=== PATIENT | male | born 1975 | race Caucasian/White ===

== ENCOUNTER 2020-11-16 12:27 | Emergency (ER) | payer MEDICAID, SELFPAY ==
--- NOTE | 2020-11-16 | ECG_ITS ---
Test Reason : SUBSTANCE ABUSE Blood Pressure : / mmHG Vent. Rate : 067 BPM Atrial Rate : 067 BPM P-R Int : 182 ms QRS Dur : 100 ms QT Int : 408 ms P-R-T Axes : -13 057 038 degrees QTc Int : 431 ms Normal sinus rhythm Normal ECG When compared with ECG of 14-AUG-2016 02:23, No significant change was found Referred By: Graeme Hodge Electronically Signed By:ELODIA ROSEN
[2020-11-16 12:55] VITALS: BP 129/81; PULSE 89; RESP 16; TEMP 36.7; O2SAT 95; BMI 28.9
--- NOTE | 2020-11-16 13:59 | ED.PSYCH ---
HPI - Psych General Chief Complaint: Psychiatric Symptoms Stated Complaint: SI Time Seen by Provider: 11/16/20 12:35 Source: patient Mode of arrival: ambulatory Limitations: no limitations History of Present Illness HPI Narrative: Patient comes to emergency room complaining depression, suicidal thoughts, substance abuse. Patient states that he has been trying to stop using drugs, but he continued using, his family stopped talking to him. Patient states that he feels like he hit a wall, has had suicidal thoughts, at this moment is not suicidal but the thought has from his mind. Patient was brought in by the refinery operator light ends recovery Related Data Allergies Allergy/AdvReac Type Severity Reaction Status Date / Time Penicillins [PENICILLINS] Allergy Mild HIVES Unverified 10/30/19 14:50 Review of Systems Review of Systems: Constitutional : No Weight loss, No Fever, No Chills, No Night Sweats, No Fatigue, No Malaise ENT/Mouth : No Hearing loss, No Ear Pain, No Nasal Congestion, No Sinus Pain, No Hoarseness, No sore throat, No Rhinorrhea, No Swallowing Difficulty Eyes: No Eye Pain, No Swelling, No Redness, No Foreign Body, No Discharge, No Vision Changes Cardiovascular : No Chest Pain, No SOB, No Dyspnea on Exertion, No Orthopnea, No Edema, No Palpitations Respiratory : No Cough, No Sputum, No Wheezing, No Smoke Exposure, No Dyspnea Gastrointestinal : No Nausea, No Vomiting, No Diarrhea, No Constipation, No abdominal Pain, No Hematochezia, No Melena Genitourinary : no irregular bleeding, No Dysuria, No Urinary Frequency, No Hematuria, No Urinary Incontinence, No Urgency, No Flank Pain, No Urinary Flow Changes, No Hesitancy Musculoskeletal : No joint pain, No Myalgias, No Joint Swelling Skin : No Skin Lesions, No rash Neuro : No Weakness, No Numbness, No Paresthesias, No Loss of Consciousness, No Dizziness, No Headache Psych : complaining of depression, complaining of intermittent suicidal thoughts, wants to stop using drugs Heme/Lymph: No Bruising, No Bleeding,No Lymphadenopathy Endocrine : No Polyuria, No Polydipsia, No Temperature Intolerance PMF Past Medical History Medical History (Updated 11/16/20 @ 14:04 by Samia Moss MD) Depression Social History Social History Advance Directives: No Advance Directives Information Provided: No Physical Exam Vital Signs: Vital Signs: Last Vital Signs Temp 98.1 F 11/16/20 12:55 Pulse 89 11/16/20 12:55 Resp 16 11/16/20 12:55 BP 129/81 11/16/20 12:55 Pulse Ox 95 11/16/20 12:55 Body Mass Index 28.9 Const: Other: Appearance: Alert. Oriented X3. No acute distress. Eyes: Pupils equal, round and reactive to light. ENT: Pharynx normal. Neck: Normal inspection. Neck supple. No lymph nodes noted. No crepitus CVS: Normal heart rate and rhythm. Pulses normal. Normal S1 and S2 Respiratory: No respiratory distress. Breath sounds normal. No Wheezing. No rales Abdomen: Soft and nontender. No rigidity. No distention. good BS x4 Skin: Skin warm and dry. Normal skin color. Normal skin turgor. Extremities: No lower extremity edema. No lower extremity edema. No Lacerations. No Rash Neuro: Oriented X 3. Cranial nerves 2-12 grossly intact. No motor deficit. No sensory deficit. Moving all extermities. No slurred speech. Psych: Normal speech, calm, cooperative, normal affect Course Course Course Narrative: Patient would [facility]. Patient is considering dual diagnosis. Physician observation started at 14:00. Patient stable. Discharge Plan Discharge Clinical Impression: Substance abuse, Suicide ideation
[2020-11-16 15:28] LABS: Amphetamine Screen Urine Not Detected (Not Detect); Barbiturates, Urine Not Detected (Not Detect); Benzodiazepines Screen Urine Not Detected (Not Detect); Cannabinoid Screen Urine Not Detected (Not Detect); Cocaine Screen Urine POSITIVE (Not Detect); Fentanyl, urine Not Detected (Not Detect); Opiate Screen Urine Not Detected (Not Detect); Phencyclidine Screen Urine Not Detected (Not Detect)
[2020-11-16 15:30] LABS: COVID-19 Test Negative (Negative)
--- NOTE | 2020-11-16 18:00 | MHC.RECOVSUP ---
? Reason for consult o Current location: o Identified substance use concern: cocaine -support ? Intervention:s o Community resources provided o Harm reduction discussion ? Plan: o o Follow up tomorrow o Patient awaiting crisis evaluation o Patient to follow up with [facility] after discharge ? Additional information:Patient states that he wants a dual diagnosis place to go to. Explained to pt. that hopefully he can speak to [facility] when they come to assess him. Was able to notify Care Team
--- NOTE | 2020-11-16 20:18 | MHC.CARE ---
Pt was evaluated by N and disposition was for d/c in the morning. Pt will remain in the ED overnight.
[2020-11-16 20:29] LABS: MANUAL DIFF FLAG NO
[2020-11-16 20:33] LABS: Basophils Percent Auto 0.5 % (0-2); Eosinophils Absolute Auto 0.2 X10*3/uL (0.0-0.4); Eosinophils Percent Auto 3.6 % (0-4); Hematocrit 46.6 % (42-52); Hemoglobin 16.1 g/dl (14.0-18.0); Imm Gran Abs Auto 0.01 X10*3/uL (0.00-0.03); Imm Gran Pct Auto 0.2 % (0.0-0.4); Lymphocytes Absolute Auto 2.8 X10*3/uL (1.2-4.9); Mean Corpuscular HGB Conc 34.5 g/dl (31.0-36.0); Mean Corpuscular Hemoglobin 30.1 pg (27.0-33.0); Mean Corpuscular Volume 87.3 fL (80-98); Mean Platelet Volume 10.1 fL (9.4-12.4); Monocytes Absolute Auto 0.7 X10*3/uL (0.1-1.2); Monocytes Percent Auto 11.3 % (2-11); Neutrophils Absolute Auto 2.6 X10*3/uL (2.0-8.3); Neutrophils Percent Auto 40.4 % (45-73); Platelet Count 183 X10*3/uL (160-400); Red Blood Count 5.34 X10*6/uL (4.60-5.80); Red Cell Distribution Width 12.5 % (11.0-16.0); White Blood Count 6.4 X10*3/uL (4.8-10.8)
[2020-11-16 20:45] LABS: Anion Gap 12 (12-20); Blood Urea Nitrogen 17 mg/dL (9-16); Calcium 9.6 mg/dL (8.4-10.2); Carbon Dioxide 29 mmol/L (22-29); Chloride 101 mmol/L (96-108); Creatinine Clr Calc Pharmacy 93.6; Estimated Glomerular Filt Rate 59; Glucose Random 274 mg/dL (60-115); Potassium 4.3 mmol/L (3.3-5.1); Sodium 138 mmol/L (135-145)
[2020-11-17 00:30] VITALS: BP 115/76; PULSE 74; RESP 17; TEMP 36.5; O2SAT 95
--- NOTE | 2020-11-17 07:44 | PC.NURSE ---
patient appears to remain asleep at present with even unlabored breaths patient appears in no distress
[2020-11-17 08:44] VITALS: BP 115/76; PULSE 74
[2020-11-17] MEDS: Propranolol HCL LA 60 MG CAP.SA.24H PO (08:44)
[2020-11-17] MEDS: PARoxetine HCL 20 MG TABLET 60 MG PO (08:44)
--- NOTE | 2020-11-17 08:55 | MHC.RECOVSUP ---
Recovery Support note: Patient is a 45 year old Eritrean speaking male who presented to [facility] ED with a soccer coach after they were unable to find a detox bed. Patient reported vague SI thoughts upon admission to the emergency department. Patient was evaluated by [facility] Crisis. [facility] recommends patient discharge and follow up with ATS facilities. This movie writer met with patient to discuss this plan. Patient denies SI and agrees that he would benefit most from detox. Patient reports cocaine and alcohol use and that his last drink was the day before admitting to the emergency department. Patient reports he is willing to go anywhere for treatment. This movie writer will assist patient in referring to ATS facilities.
--- NOTE | 2020-11-17 11:05 | MHC.RECOVSUP ---
Recovery Support note: Patient completed intake with [facility] and has been accepted for admission. Patient will be transported to [facility] via Lyft or Taxi once discharged. Plan for patient's girlfriend to drop off his medications at the facility later on today. Patient agreeable to this plan. Discussed case with patient's RN and ED provider.
--- NOTE | 2020-11-17 11:14 | PC.NURSE ---
per detox customer care team coach, pt to be d/c
== END 2020-11-17 11:29 | disposition other institution (70) ==
PROVIDERS: Emergency Medicine; Emergency Provider Emergency Medicine
DX: F33.1 Major depressive disorder, recurrent, moderate (principal); R45.851 Suicidal ideations; F14.10 Cocaine abuse, uncomplicated; F10.10 Alcohol abuse, uncomplicated; Y90.9 Presence of alcohol in blood, level not specified; Z20.822 Contact with and (suspected) exposure to COVID-19; Z71.51 Drug abuse counseling and surveillance of drug abuser; Z79.899 Other long term (current) drug therapy
CPT/HCPCS: 36415; 80048; 80307; 85025; 87635; 93005; 99284; 99285

== ENCOUNTER 2020-12-01 20:19 | Inpatient (IN) | payer OTHER, MEDICAID, SELFPAY ==
[2020-12-01 20:31] VITALS: BP 127/79; PULSE 95; RESP 17; TEMP 36.8; O2SAT 95; BMI 30.8
[2020-12-01 21:06] LABS: Appearance Urine HAZY; Color Urine DK YELLOW; Glucose Urine UA 500 MG/DL (NEG); Leukocyte Esterase Urine NEG (NEG); Nitrite Urine NEG (NEG); PH 5.5 (5.0-8.0); Specific Gravity - Urine >= 1.030 (1.005-1.025); UACC Culture Trigger NO; Urine Blood NEG (NEG); Urine Ketones NEG (NEG); Urine Protein 1+ MG/DL (NEG-TRACE)
[2020-12-01 21:11] LABS: Mucus Urine 4+ /LPF
[2020-12-01 21:12] LABS: Granular Casts Urine 0-2 /LPF; Squamous Epithelial Cell Urine TRACE /LPF
[2020-12-01 21:13] LABS: Bacteria Urine TRACE /LPF; RBC Urine 0-2 /HPF (0); WBC Urine 0 /HPF (0-4)
--- NOTE | 2020-12-01 21:17 | ED_ITS ---
HPI - Psych General Chief Complaint: Psychiatric Symptoms Stated Complaint: SI w/ plan Time Seen by Provider: 12/01/20 21:17 Source: patient Mode of arrival: EMS Limitations: no limitations History of Present Illness HPI Narrative: Patient history of depression/bipolar complaining of increased depression went to the PD department the patient was here on 11/16 and sent to living room, history of cocaine abuse. Patient is not taking his medication for last 1 week had a fight with his girlfriend and is homeless for last 3 days does not have any wish to live anymore his family disowned him Related Data Home Medications Medication Instructions Recorded Confirmed buspirone 5 mg tablet 1 tab PO BID 12/01/20 12/01/20 celecoxib 100 mg capsule 1 cap PO BID 12/01/20 12/01/20 dextroamphetamine-amphetamine ER 1 cap PO BEDTIME 12/01/20 12/01/20 25 mg 24hr capsule,extend release (Adderall XR) paroxetine HCl 30 mg tablet 60 mg PO DAILY 12/01/20 12/01/20 propranolol 60 mg capsule,24 1 cap PO DAILY 12/01/20 12/01/20 hr,extended release Allergies Allergy/AdvReac Type Severity Reaction Status Date / Time Penicillins [PENICILLINS] Allergy Mild HIVES Unverified 10/30/19 14:50 Review of Systems Review of Systems: Constitutional : No Fever, No Chills ENT/Mouth : No Ear Pain, No Nasal Congestion, No sore throat Eyes: No Eye Pain, No Swelling, No Redness Cardiovascular : No Chest Pain, No SOB Respiratory : No Cough, No Sputum, No Dyspnea Gastrointestinal : No Nausea, No Vomiting, No Diarrhea, No Hematochezia, No Melena Genitourinary : No Dysuria, No Urinary Frequency, No Hematuria Musculoskeletal : No Myalgias Skin : No Skin Lesions, No rash Neuro : No Weakness, No Numbness, No Paresthesias, No Dizziness, No Headache Psych : positive Anxiety, positive Depression, positive SI Heme/Lymph: No Lymphadenopathy Endocrine : No Polyuria, No Polydipsia PMFSH Past Medical History Medical History Depression Social History Social History Advance Directives: No Advance Directives Information Provided: Yes Healthcare Proxy: No Guardian: No Physical Exam Vital Signs: Vital Signs: Last Vital Signs Temp 97.9 F 12/02/20 06:46 Pulse 85 12/02/20 06:46 Resp 16 12/02/20 06:46 BP 118/78 12/02/20 06:46 Pulse Ox 96 12/02/20 06:46 Body Mass Index 30.8 Appearance: Alert. Oriented X3. No acute distress. Eyes: PERRLA, No Nystagmus ENT: Pharynx normal. Oral Mucosa moist Neck: Normal inspection. Neck supple. CVS: Normal heart rate and rhythm. Pulses normal. Respiratory: No respiratory distress. Equal air entry bilateral, no wheezing/rales/rhonchi Abdomen: Soft and nontender. Bowel sounds are present, no mass palpable, no CVA tenderness Skin: Skin warm and dry. Normal skin color. Normal skin turgor. Extremities: No lower extremity edema. No calf tenderness Psych: Mood depressed currently no suicidal ideation or homicidal feelings, no hallucination or delusion poor insight Neuro: Oriented X 3. No motor deficit. No sensory deficit.No cerebellar signs , cranial nerves II-XII intact MDM - Psych MDM Narrative Medical decision making narrative: History of cocaine abuse significant depression suicidal ideation will be seen by crisis team for proper disposition Medical Records Attestation: I reviewed the patient's medical records. Lab Data Attestation: I reviewed the patient's lab results. Labs: Lab Results 12/01/20 12/01/20 12/01/20 Range/Units 20:48 20:59 20:59 Urine Color DK YELLOW Urine Appearance HAZY Urine pH 5.5 (5.0-8.0) Ur Specific [place] >= 1.030 H (1.005-1.025) Urine Protein 1+ H (NEG-TRACE) MG/DL Urine Glucose (UA) 500 H (NEG) MG/DL Urine Ketones NEG (NEG) MG/DL Urine Blood NEG (NEG) Urine Nitrite NEG (NEG) Ur Leukocyte Esterase NEG (NEG) Urine RBC 0-2 (0) /HPF Urine WBC 0 (0-4) /HPF Ur Squamous Epith Cells TRACE /LPF Urine Bacteria TRACE /LPF Granular Casts 0-2 /LPF Urine Mucus 4+ /LPF Urine Opiates Screen Not Detected (Not Detect) Urine Fentanyl Screen Not Detected (Not Detect) Ur Barbiturates Screen Not Detected (Not Detect) Ur Phencyclidine Scrn Not Detected (Not Detect) Ur Amphetamines Screen Not Detected (Not Detect) U Benzodiazepines Scrn Not Detected (Not Detect) Urine Cocaine Screen POSITIVE H (Not Detect) U Marijuana (THC) Screen Not Detected (Not Detect) COVID-19 (INGRID) Negative (Negative) COVID-19 Clin Com See Note Discharge Plan Discharge Clinical Impression: Suicidal ideation Depression Qualifiers: Depression Type: major depressive disorder Major depression recurrence: recurrent Active/Remission status: currently active Major depression episode severity: severe Psychotic features: without psychotic features Qualified Code(s): F33.2 - Major depressive disorder, recurrent severe without psychotic features Prescriptions: No Action buspirone 5 mg tablet 1 tab PO BID RF: 0 propranolol 60 mg capsule,extended release 24 hr 1 cap PO DAILY RF: 0 paroxetine HCl 30 mg tablet 60 mg PO DAILY RF: 0 celecoxib 100 mg capsule 1 cap PO BID RF: 0 dextroamphetamine-amphetamine [Adderall XR] 25 mg capsule,extended release 24hr 1 cap PO BEDTIME RF: 0
[2020-12-01 21:20] LABS: COVID-19 Test Negative (Negative)
[2020-12-01 21:23] LABS: Amphetamine Screen Urine Not Detected (Not Detect); Barbiturates, Urine Not Detected (Not Detect); Benzodiazepines Screen Urine Not Detected (Not Detect); Cannabinoid Screen Urine Not Detected (Not Detect); Cocaine Screen Urine POSITIVE (Not Detect); Fentanyl, urine Not Detected (Not Detect); Opiate Screen Urine Not Detected (Not Detect); Phencyclidine Screen Urine Not Detected (Not Detect)
[2020-12-01] MEDS: busPIRone HCl 5 MG TABLET PO (23:00)
--- NOTE | 2020-12-02 | ECG_ITS ---
Test Reason : MED CLEARANCE Blood Pressure : / mmHG Vent. Rate : 066 BPM Atrial Rate : 066 BPM P-R Int : 198 ms QRS Dur : 092 ms QT Int : 416 ms P-R-T Axes : 014 057 044 degrees QTc Int : 436 ms Normal sinus rhythm RSR' or QR pattern in V1 suggests right ventricular conduction delay Borderline ECG No significant changes seen Referred By: Hawa Cruz Electronically Signed By:ROSALVA FLORES MD
--- NOTE | 2020-12-02 06:23 | PC.NURSE ---
Patient slept through the night, no distress observed/reported, medication compliant, behavior appropriate, mood depressed, disposition is section 12 inpatient bed search per care team, will continue to monitor.
[2020-12-02 06:46] VITALS: BP 118/78; PULSE 85; RESP 16; TEMP 36.6; O2SAT 96
[2020-12-02 10:45] VITALS: BP 110/78; PULSE 81; RESP 16; TEMP 36.6; O2SAT 98
--- NOTE | 2020-12-02 10:47 | PC.NURSE ---
PT asked if he can bring in adderal from home, Pt states that he does not take it regularly and probably shouldn't take it anyway .
[2020-12-02 10:50] VITALS: BP 110/78; PULSE 81
[2020-12-02] MEDS: Propranolol HCL LA 60 MG CAP.SA.24H PO (10:50)
[2020-12-02] MEDS: PARoxetine HCL 20 MG TABLET 60 MG PO (10:50)
[2020-12-02] MEDS: busPIRone HCl 5 MG TABLET PO (10:50)
[2020-12-02] MEDS: Celecoxib 100 MG CAPSULE PO ×2 (10:50→22:39)
[2020-12-02 10:58] LABS: MANUAL DIFF FLAG NO
[2020-12-02 11:02] LABS: Basophils Percent Auto 0.3 % (0-2); Eosinophils Absolute Auto 0.2 X10*3/uL (0.0-0.4); Eosinophils Percent Auto 3.5 % (0-4); Hematocrit 44.8 % (42-52); Hemoglobin 15.7 g/dl (14.0-18.0); Imm Gran Abs Auto 0.02 X10*3/uL (0.00-0.03); Imm Gran Pct Auto 0.3 % (0.0-0.4); Lymphocytes Absolute Auto 1.8 X10*3/uL (1.2-4.9); Lymphocytes Percent Auto 26.6 % (20-40); Mean Corpuscular Hemoglobin 30.3 pg (27.0-33.0); Mean Corpuscular Volume 86.5 fL (80-98); Mean Platelet Volume 10.3 fL (9.4-12.4); Monocytes Absolute Auto 0.6 X10*3/uL (0.1-1.2); Monocytes Percent Auto 8.5 % (2-11); Neutrophils Absolute Auto 4.1 X10*3/uL (2.0-8.3); Neutrophils Percent Auto 60.8 % (45-73); Platelet Count 161 X10*3/uL (160-400); Red Blood Count 5.18 X10*6/uL (4.60-5.80); Red Cell Distribution Width 12.8 % (11.0-16.0); White Blood Count 6.8 X10*3/uL (4.8-10.8)
[2020-12-02 11:18] LABS: Alanine Aminotransferase 23 U/L (0-40); Albumin Level 4.1 g/dL (3.5-5.0); Alkaline Phosphatase 79 U/L (39-117); Anion Gap 11 (12-20); Aspartate Amino Transferase 23 U/L (5-37); Blood Urea Nitrogen 20 mg/dL (9-16); Calcium 9.3 mg/dL (8.4-10.2); Carbon Dioxide 28 mmol/L (22-29); Chloride 100 mmol/L (96-108); Creatinine Clr Calc Pharmacy 127.6; Estimated Glomerular Filt Rate > 60; Glucose Random 292 mg/dL (60-115); Sodium 135 mmol/L (135-145); Total Protein 6.8 g/dL (6.5-8.0)
[2020-12-02 18:00] VITALS: BP 104/73; PULSE 83; RESP 18; TEMP 36.7; O2SAT 94
--- NOTE | 2020-12-02 18:34 | PC.ADMIT ---
Pt is a 45 year old male admitted to the unit from [facility] ed where he had been assessed by MEGHANAN. Pt reportedly pt came looking for help after feeling hopeless and helpless because of his chronic addiction to crack cocaine. Pt reports a history of feeling depressed in relation to his constant use of this. He resides with his girlfriend of 8 years and has become estranged from his family for several years due to the addiction and a history of incarcerations. Pt had endorsed SI with plan to walk infront of traffic, according to the crisis evaluation pt was feeling destitute and stated he had no home to go to and had broken up with his girlfriend. However, during this assessment pt stated he will be able to return home to her and is feeling more hopeful about the future and is looking for help to get back on meds and perhaps seek DMH services and therepy as well as returning to addiction support groups. Pt has a history of trauma relating to his parent's bad marriage and his having found friends who had after overdosing in crack houses in the past. Pt does not currently work because of a shoulder injury caused by work related tissue trauma. Provider aware, admission complete, med req completed/reviewed by ED and provider., orders complete.
[2020-12-02] MEDS: Melatonin 3 MG TABLET 6 MG PO (22:42)
--- NOTE | 2020-12-02 23:15 | HO.PSYADMNOT ---
HPI Date of Service: 12/02/20 Chief Complaint: bipolar disorder stimulant use disorder cocaine Sources of Information: patient interviewed, chart reviewed and crisis/core team assessment reviewed HPI Subjective Notes: [place]er Warning and Conditional Voluntary Healthcare Proxy: No Guardianship: No Medical Problems Affecting Mental Status: No Narrative: Mane is a 45 y.o. Male with a hx of MDD recurrent episode and crack cocaine use disorder. He presented to [facility] on 12/01/20 after self presenting to today and requesting help due to increased depression, anxiety, and SI with plan to jump in front of a moving car. Has been non-adherent with medication for 1 week. Precipitating factors include he had a fight with his girlfriend and is homeless for last 3 days, denies having family/ friend support. Recent daily crack cocaine abuse, using $40 worth. He presented to [facility] on 11/16 due to similar presentation and was sent to the Living Room with plan for detox admission, however he did not follow through as he was no longer detoxing. I evaluated the pt this evening and upon inquiry he reports ?I dont know how to deal with my mental health.? Says he has always struggled with depression and anxiety but has recently been diagnosed with panic disorder and PTSD in the past 6 mo. For precipitating factors, he says ?life is overwhelming, a lot of it is my addiction too.? Says he ?would like to stop, it?s literally killing me.? Says his sleep is poor, has difficulty falling asleep, has been ?lying in here for the last hour and half,? attributes this to anxiety. ays his last panic attack was ?a couple days ago.? Has been feeling ?nervous? due to being in a new environment and prefers to ?keep to myself.? No nightmares. Daytime energy is ?really low.? No hx of dorothea/ hypomania endorsed. Denies agitation or anger issues. Denies psychosis. Says he does not want to take any meds that are sedating or cause grogginess because he doen?t want to ?feel like i?m getting high.? Asked to for his adderall to be discontinued. Currently denies SI and says he feels safe. Denies urges to use cocaine.? Past Psychiatric History: -Has OP psych services at [facility] in [place] -hx of several [facility] admissions, one PHP admission. Past meds: Gabapentin (grogginess), trazodone (wont take, does not like potential for morning hangover effect). Adderall (asked for this to be discontinued). Medical Evaluation Reviewed: Yes [facility] Medical History Depression Narrative: -Hx of L knee issues Social History: -Pt reports he was residing with his girlfriend up until three days ago, but they had a fight and he is currently homeless. Has history of being homeless since 2000, in and out of shelters. -Raised in [place] by his parents. His parents were when he was 11 yrs old. Has no contact with his father or brother. -He dropped out of school in the 9th grade, but was able to obtain his GED while incarcerated. Substance History: -Crack cocaine: began age 25, daily use, $40 worth -He has a history of multiple detox and EATS admissions. He has a history of relapsing shorty after a discharge from a substance abuse treatment program. Trauma History: -R/t hx of homelessness and [facility] Diagnostics Vital Signs (24Hr): Vital Signs - 24 hr 12/02/20 06:46 12/02/20 10:45 12/02/20 10:50 Temperature 97.9 F 97.8 F Pulse Rate 85 81 81 Respiratory Rate 16 16 Blood Pressure 118/78 110/78 110/78 Pulse Oximetry 96 98 Body Mass Index 30.8 Labs Results: 12/02/20 10:50 12/02/20 10:50 Labs: Laboratory Results - last 48 hr 12/01/20 12/01/20 12/01/20 20:48 20:59 20:59 WBC RBC Hgb Hct MCV MCH MCHC RDW Plt Count MPV Immature Gran % (Auto) Neut % (Auto) Lymph % (Auto) [place] % (Auto) Eos % (Auto) Baso % (Auto) Lymph # (Auto) [place] # (Auto) Eos # (Auto) Baso # (Auto) Abs Immat Gran (auto) Absolute Neuts (auto) Absolute Nucleated RBC Nucleated RBC % (auto) Sodium Potassium Chloride Carbon Dioxide Anion Gap BUN Creatinine Estim Creat Clear Calc Estimated GFR Random Glucose Calcium Total Bilirubin AST ALT Alkaline Phosphatase Total Protein Albumin Urine Color DK YELLOW Urine Appearance HAZY Urine pH 5.5 Ur Specific [place] >= 1.030 H Urine Protein 1+ H Urine Glucose (UA) 500 H Urine Ketones NEG Urine Blood NEG Urine Nitrite NEG Ur Leukocyte Esterase NEG Urine RBC 0-2 Urine WBC 0 Ur Squamous Epith Cells TRACE Urine Bacteria TRACE Granular Casts 0-2 Urine Mucus 4+ Urine Opiates Screen Not Detected Urine Fentanyl Screen Not Detected Ur Barbiturates Screen Not Detected Ur Phencyclidine Scrn Not Detected Ur Amphetamines Screen Not Detected U Benzodiazepines Scrn Not Detected Urine Cocaine Screen POSITIVE H U Marijuana (THC) Screen Not Detected COVID-19 (INGRID) Negative COVID-19 Clin Com See Note 12/02/20 12/02/20 10:50 10:50 WBC 6.8 RBC 5.18 Hgb 15.7 Hct 44.8 MCV 86.5 MCH 30.3 MCHC 35.0 RDW 12.8 Plt Count 161 MPV 10.3 Immature Gran % (Auto) 0.3 Neut % (Auto) 60.8 Lymph % (Auto) 26.6 [place] % (Auto) 8.5 Eos % (Auto) 3.5 Baso % (Auto) 0.3 Lymph # (Auto) 1.8 [place] # (Auto) 0.6 Eos # (Auto) 0.2 Baso # (Auto) 0.0 Abs Immat Gran (auto) 0.02 Absolute Neuts (auto) 4.1 Absolute Nucleated RBC 0.000 Nucleated RBC % (auto) 0.0 Sodium 135 Potassium 4.0 Chloride 100 Carbon Dioxide 28 Anion Gap 11 L BUN 20 H Creatinine 0.97 Estim Creat Clear Calc 127.6 Estimated GFR > 60 Random Glucose 292 H Calcium 9.3 Total Bilirubin 1.0 AST 23 ALT 23 Alkaline Phosphatase 79 Total Protein 6.8 Albumin 4.1 Urine Color Urine Appearance Urine pH Ur Specific [place] Urine Protein Urine Glucose (UA) Urine Ketones Urine Blood Urine Nitrite Ur Leukocyte Esterase Urine RBC Urine WBC Ur Squamous Epith Cells Urine Bacteria Granular Casts Urine Mucus Urine Opiates Screen Urine Fentanyl Screen Ur Barbiturates Screen Ur Phencyclidine Scrn Ur Amphetamines Screen U Benzodiazepines Scrn Urine Cocaine Screen U Marijuana (THC) Screen COVID-19 (INGRID) COVID-19 Clin Com Meds/Allergies Meds Home Medications Acetaminophen (Acetaminophen 325 Mg Tablet) 650 mg PO Q6H PRN PRN Reason: Headache/Pain Mild Scale (1-3) Al Hydroxide/Mg Hydroxide (Magnesium Hydrox/Alum Hydrox 30 Ml Oral.Susp) 30 ml PO Q6H PRN PRN Reason: Heartburn/Nausea Buspirone HCl (Buspirone Hcl 5 Mg Tablet) 15 mg PO BID [facility] Celecoxib (Celecoxib 100 Mg Capsule) 100 mg PO BID [facility] Last Admin: 12/02/20 22:39 Dose: 100 mg Documented by: Hydroxyzine HCl (Hydroxyzine Hcl 25 Mg Tablet) 25 mg PO BEDTIME PRN PRN Reason: Anxiety Magnesium Hydroxide (Milk Of Magnesia 30 Ml Oral.Susp) 30 ml PO DAILY PRN PRN Reason: Constipation Melatonin (Melatonin 3 Mg Tablet) 6 mg PO BEDTIME PRN PRN Reason: insomnia Last Admin: 12/02/20 22:42 Dose: 6 mg Documented by: Paroxetine HCl (Paroxetine Hcl 20 Mg Tablet) 60 mg PO DAILY [facility] Last Admin: 12/02/20 10:50 Dose: 60 mg Documented by: Propranolol HCl (Propranolol Hcl La 60 Mg Cap.Sa.24h) 60 mg PO DAILY [facility]; Protocol Last Admin: 12/02/20 10:50 Dose: 60 mg Documented by: Trazodone HCl (Trazodone Hcl 50 Mg Tablet) 50 mg PO BEDTIME PRN PRN Reason: Insomnia Allergies Allergies Allergy/AdvReac Type Severity Reaction Status Date / Time Penicillins [PENICILLINS] Allergy Mild HIVES Unverified 10/30/19 14:50 Mental Status Exam Mental Status Exam Narrative: A&O. In hospital attire, good hygiene, normal body habitus, tall, lying down in bed. Poor eye contact, attentive. No Tics or Tremors. No abnormal involuntary movements. Calm, somewhat withdran, engaged. Non-pressured speech, spontaneous with regular rate and rhythm, normal volume and prosody. No prolonged speech latency or dysarthria. Mood is ?anxious,? affect is blunted. Denies SI/SIB/HI upon inquiry. Denies A/VH or delusional thought content. Thoughts are coherent, organized. No known cognitive or memory impairment. Insight/ Judgment fair and adequate. Assessment & Plan Assessment & Plan (1) MDD (major depressive disorder), recurrent episode, moderate: Status: Acute Code(s): F33.1 - Major depressive disorder, recurrent, moderate (2) Cocaine use disorder: Status: Acute Code(s): F14.10 - Cocaine abuse, uncomplicated (3) MARY (generalized anxiety disorder): Status: Acute Code(s): F41.1 - Generalized anxiety disorder Assessment and Plan: Mane is a 45 y.o. Male with a hx of MDD recurrent episode, MARY, and crack cocaine use disorder. He is presenting with sx of depression including hopeleness, anhedonia, irritability, low energy, and SI. Reports struggling with daily anxiety and recent panic attacks. Recent med changes include addition of buspar at 5 mg BID. Does not want to trial new medication but he is open to increasing buspar to therapeutic dose. Will increase to 15 mg BID, as buspar has significantly increased efficacy for anxiety and as adjunct tx for depression at higher doses and 15 mg BID is a starting dose. Will add melatonin 6 mg QHS PRN for difficult falling asleep, as pt does not want sedative hypnotic medication, says he is sensitive to any meds that cause sedation. Buspar is less likely to cause sedation at doses below 20 mg. Reviewed risks and benefits. No hx of manic or hypomanic episodes endorsed. Plan: Consider consult with recovery team Monitor response to medications. Monitor for safety in the milieu. Discharge on stabilization. Patient seen. Chart reviewed. Discussed with team. Obtain collateral contact info?as needed Reason for continued inpatient stay Substantial Risk for: harm to self, inability to function and med/psych decompensation
[2020-12-03 06:00] VITALS: BP 122/73; PULSE 70; RESP 18; TEMP 36.6; O2SAT 99
[2020-12-03 08:34] VITALS: BP 108/73; PULSE 65
[2020-12-03] MEDS: PARoxetine HCL 20 MG TABLET 60 MG PO (08:34)
[2020-12-03] MEDS: Celecoxib 100 MG CAPSULE PO (08:34)
[2020-12-03] MEDS: busPIRone HCl 5 MG TABLET 15 MG PO (08:34)
[2020-12-03] MEDS: Propranolol HCL LA 60 MG CAP.SA.24H PO (08:34)
[2020-12-03 09:10] LABS: Estimated Average Glucose 272 mg/dL; Hemoglobin A1c % 11.1 %
[2020-12-03 09:30] LABS: Cholesterol 233 mg/dL; HDL Cholesterol 29 mg/dL; LDL Cholesterol Calculated 147 mg/dl; Triglycerides 288 mg/dL
[2020-12-03 09:51] LABS: Free T4 (Free Thyroxine) 0.85 ng/dL (0.71-1.85); Thyroid Stimulating Hormone 0.49 uIU/mL (0.32-4.0)
[2020-12-03 10:05] LABS: Folate 13.1 ng/mL (> or = 4.0); Vitamin B12 333 pg/mL (200-900)
--- NOTE | 2020-12-03 16:47 | P.DS_ITS ---
DS: Providers Provider Date of Service: 12/03/20 Date of admission: 12/02/20 13:58 Date of discharge: 12/03/20 Primary care physician: Unknown Physician Admitting clinician: Savita Roy Attending physician on admission: Ayden Oconnell Attending physician on discharge: Ayden Oconnell Discharging clinician: Miriam Estrada DS: Diagnosis Discharge Diagnosis (1) MDD (major depressive disorder), recurrent episode, moderate: Status: Acute (2) Cocaine use disorder: Status: Acute (3) MARY (generalized anxiety disorder): Status: Acute DS: Medications Discharge Medications Home Medications: Home Medications Medication Instructions Recorded Confirmed buspirone 5 mg tablet 1 tab PO BID 12/01/20 12/01/20 celecoxib 100 mg capsule 1 cap PO BID 12/01/20 12/01/20 dextroamphetamine-amphetamine ER 1 cap PO BEDTIME 12/01/20 12/01/20 25 mg 24hr capsule,extend release (Adderall XR) paroxetine HCl 30 mg tablet 60 mg PO DAILY 12/01/20 12/01/20 propranolol 60 mg capsule,24 1 cap PO DAILY 12/01/20 12/01/20 hr,extended release Mental Status Exam Mental Status Exam Patient Appearance: Appropriate Patient Orientation: Person, Place, Time and Situation Level of Consciousness: Awake and Alert Patient Behavior: Appropriate, Talkative and Good Eye Contact Mood Description: Appropriate Affect Description: Appropriate Patient Cognition Impaired: No Ability to Follow Directions: Good Speech Pattern: Spontaneous Speech Memory Description: Intact Hallucinations: None Delusions: Not Present Thought Process: Intact Thought Content: positive for Intact, positive for Suicidal Ideation (denies) and positive for Homicidal Ideation (denies) Judgement: Good Data Data Completed and Pending Completed studies during hospitalization [Text1]: 12/01/20 12/01/20 12/01/20 20:48 20:59 20:59 WBC RBC Hgb Hct MCV MCH MCHC RDW Plt Count MPV Immature Gran % (Auto) Neut % (Auto) Lymph % (Auto) [place] % (Auto) Eos % (Auto) Baso % (Auto) Lymph # (Auto) [place] # (Auto) Eos # (Auto) Baso # (Auto) Abs Immat Gran (auto) Absolute Neuts (auto) Absolute Nucleated RBC Nucleated RBC % (auto) Sodium Potassium Chloride Carbon Dioxide Anion Gap BUN Creatinine Estim Creat Clear Calc Estimated GFR Random Glucose Estimat Average Glucose Hemoglobin A1c % Calcium Total Bilirubin AST ALT Alkaline Phosphatase Total Protein Albumin Triglycerides Cholesterol LDL Cholesterol, Calc HDL Cholesterol Vitamin B12 Folate TSH Free T4 Urine Color DK YELLOW Urine Appearance HAZY Urine pH 5.5 Ur Specific [place] >= 1.030 H Urine Protein 1+ H Urine Glucose (UA) 500 H Urine Ketones NEG Urine Blood NEG Urine Nitrite NEG Ur Leukocyte Esterase NEG Urine RBC 0-2 Urine WBC 0 Ur Squamous Epith Cells TRACE Urine Bacteria TRACE Granular Casts 0-2 Urine Mucus 4+ Urine Opiates Screen Not Detected Urine Fentanyl Screen Not Detected Ur Barbiturates Screen Not Detected Ur Phencyclidine Scrn Not Detected Ur Amphetamines Screen Not Detected U Benzodiazepines Scrn Not Detected Urine Cocaine Screen POSITIVE H U Marijuana (THC) Screen Not Detected COVID-19 ([facility]) Negative COVID-19 Clin Com See Note 12/02/20 12/02/20 12/03/20 10:50 10:50 08:12 WBC 6.8 RBC 5.18 Hgb 15.7 Hct 44.8 MCV 86.5 MCH 30.3 MCHC 35.0 RDW 12.8 Plt Count 161 MPV 10.3 Immature Gran % (Auto) 0.3 Neut % (Auto) 60.8 Lymph % (Auto) 26.6 [place] % (Auto) 8.5 Eos % (Auto) 3.5 Baso % (Auto) 0.3 Lymph # (Auto) 1.8 [place] # (Auto) 0.6 Eos # (Auto) 0.2 Baso # (Auto) 0.0 Abs Immat Gran (auto) 0.02 Absolute Neuts (auto) 4.1 Absolute Nucleated RBC 0.000 Nucleated RBC % (auto) 0.0 Sodium 135 Potassium 4.0 Chloride 100 Carbon Dioxide 28 Anion Gap 11 L BUN 20 H Creatinine 0.97 Estim Creat Clear Calc 127.6 Estimated GFR > 60 Random Glucose 292 H Estimat Average Glucose 272 Hemoglobin A1c % 11.1 Calcium 9.3 Total Bilirubin 1.0 AST 23 ALT 23 Alkaline Phosphatase 79 Total Protein 6.8 Albumin 4.1 Triglycerides Cholesterol LDL Cholesterol, Calc HDL Cholesterol Vitamin B12 Folate TSH Free T4 Urine Color Urine Appearance Urine pH Ur Specific [place] Urine Protein Urine Glucose (UA) Urine Ketones Urine Blood Urine Nitrite Ur Leukocyte Esterase Urine RBC Urine WBC Ur Squamous Epith Cells Urine Bacteria Granular Casts Urine Mucus Urine Opiates Screen Urine Fentanyl Screen Ur Barbiturates Screen Ur Phencyclidine Scrn Ur Amphetamines Screen U Benzodiazepines Scrn Urine Cocaine Screen U Marijuana (THC) Screen COVID-19 ([facility]) COVID-19 [facility] Com 12/03/20 12/03/20 08:12 08:12 WBC RBC Hgb Hct MCV MCH MCHC RDW Plt Count MPV Immature Gran % (Auto) Neut % (Auto) Lymph % (Auto) [place] % (Auto) Eos % (Auto) Baso % (Auto) Lymph # (Auto) [place] # (Auto) Eos # (Auto) Baso # (Auto) Abs Immat Gran (auto) Absolute Neuts (auto) Absolute Nucleated RBC Nucleated RBC % (auto) Sodium Potassium Chloride Carbon Dioxide Anion Gap BUN Creatinine Estim Creat Clear Calc Estimated GFR Random Glucose Estimat Average Glucose Hemoglobin A1c % Calcium Total Bilirubin AST ALT Alkaline Phosphatase Total Protein Albumin Triglycerides 288 Cholesterol 233 LDL Cholesterol, Calc 147 HDL Cholesterol 29 Vitamin B12 333 Folate 13.1 TSH 0.49 Free T4 0.85 Urine Color Urine Appearance Urine pH Ur Specific [place] Urine Protein Urine Glucose (UA) Urine Ketones Urine Blood Urine Nitrite Ur Leukocyte Esterase Urine RBC Urine WBC Ur Squamous Epith Cells Urine Bacteria Granular Casts Urine Mucus Urine Opiates Screen Urine Fentanyl Screen Ur Barbiturates Screen Ur Phencyclidine Scrn Ur Amphetamines Screen U Benzodiazepines Scrn Urine Cocaine Screen U Marijuana (THC) Screen COVID-19 ([facility]) COVID-19 Clin Com DS: Summary Hospital Course Hospital Course: Admission to adult psychiatry to address symptoms of anxiety, depression, possible bipolar disorder and cocaine use disorder. Care plan, medication regime and out patient plan of care prior to admission were reviewed. Education was provided regarding management of symptoms, medications and side effects. Nursing and social service worker worked extensively with pt on collateral contacts, plan of care, education regarding management of symptoms, medications and discharge planning. Pt, however, declined to remain to work on issues, citing admission was in response to a disagreement with his partner. He refused care and requested to return to his out patient team. Time spent discussing smoking cessation with patient: 3 to 10 minutes Status at Discharge Cognitive/behavioral status at discharge: non-psychotic, non-suicidal Functional status at discharge: independent ambulation Overall status at discharge: patient is back to baseline Time Spent with Patient Time attestation: Total time spent providing and/or coordinating discharge services:25 Time spent: Less than 30 minutes Discharge Plan Discharge Patient Disposition: Home, Self-Care Discharge Diagnosis: Stimulant Use [id number] year history per pt report MARY Recurrent Major Depression Referrals: [facility] Antoine [Other] - 12/13/20 11:30 am Discharge Medications: Continued buspirone 5 mg tablet 1 tab PO BID RF: 0 propranolol 60 mg capsule,extended release 24 hr 1 cap PO DAILY RF: 0 paroxetine HCl 30 mg tablet 60 mg PO DAILY RF: 0 celecoxib 100 mg capsule 1 cap PO BID RF: 0 dextroamphetamine-amphetamine [Adderall XR] 25 mg capsule,extended release 24hr 1 cap PO BEDTIME RF: 0 Discharge Orders: Discharge Order (Routine); Ordered 12/03/20 Ordered By: Miriam Estrada Diet: advance to usual diet Activity on Discharge: As tolerated Stand Alone Forms: Patient Portal Discharge page, Community Support Care Plan Goals: Mood Stabilization Sobriety Health Concerns: Cocaine Use Disorder MARY Recurrent Major Depression Plan of Treatment: Attend scheduled appointments Take medications as directed Consider further substance abuse treatment Assessment: non-psychotic, non-suicidal. Pt will return home with partner, who supports discharge and will provide transportation and support after discharge Discharge Date/Time: 12/03/20 16:50
--- NOTE | 2020-12-03 16:47 | HO.PSYADMNOT ---
HPI Date of Service: 12/03/20 Chief Complaint: bipolar disorder stimulant use disorder cocaine Sources of Information: patient interviewed, chart reviewed and crisis/core team assessment reviewed HPI Subjective Notes: [place] Warning, Conditional Voluntary and 3 Day Healthcare Proxy: No Guardianship: No Medical Problems Affecting Mental Status: No Past Psychiatric History: -Has OP psych services at [facility] in [place] -hx of several [facility] admissions, one PHP admission. Past meds: Gabapentin (grogginess), trazodone (wont take, does not like potential for morning hangover effect). Adderall (asked for this to be discontinued). [facility] Medical History Depression Social History: -Pt reports he was residing with his girlfriend up until three days ago, but they had a fight and he is currently homeless. Has history of being homeless since 2000, in and out of shelters. -Raised in [place] by his parents. His parents were when he was 11 yrs old. Has no contact with his father or brother. -He dropped out of school in the 9th grade, but was able to obtain his GED while incarcerated. Trauma History: -R/t hx of homelessness and [facility] Vital Signs (24Hr): Vital Signs - 24 hr 12/02/20 18:00 12/03/20 06:00 12/03/20 08:34 Temperature 98.0 F 97.9 F Pulse Rate 83 70 65 Respiratory Rate 18 18 Blood Pressure 104/73 122/73 108/73 Pulse Oximetry 94 99 Body Mass Index 30.8 Labs Results: 12/02/20 10:50 12/02/20 10:50 Labs: Laboratory Results - last 48 hr 12/01/20 12/01/20 12/01/20 20:48 20:59 20:59 WBC RBC Hgb Hct MCV MCH MCHC RDW Plt Count MPV Immature Gran % (Auto) Neut % (Auto) Lymph % (Auto) [place] % (Auto) Eos % (Auto) Baso % (Auto) Lymph # (Auto) [place] # (Auto) Eos # (Auto) Baso # (Auto) Abs Immat Gran (auto) Absolute Neuts (auto) Absolute Nucleated RBC Nucleated RBC % (auto) Sodium Potassium Chloride Carbon Dioxide Anion Gap BUN Creatinine Estim Creat Clear Calc Estimated GFR Random Glucose Estimat Average Glucose Hemoglobin A1c % Calcium Total Bilirubin AST ALT Alkaline Phosphatase Total Protein Albumin Triglycerides Cholesterol LDL Cholesterol, Calc HDL Cholesterol Vitamin B12 Folate TSH Free T4 Urine Color DK YELLOW Urine Appearance HAZY Urine pH 5.5 Ur Specific [place] >= 1.030 H Urine Protein 1+ H Urine Glucose (UA) 500 H Urine Ketones NEG Urine Blood NEG Urine Nitrite NEG Ur Leukocyte Esterase NEG Urine RBC 0-2 Urine WBC 0 Ur Squamous Epith Cells TRACE Urine Bacteria TRACE Granular Casts 0-2 Urine Mucus 4+ Urine Opiates Screen Not Detected Urine Fentanyl Screen Not Detected Ur Barbiturates Screen Not Detected Ur Phencyclidine Scrn Not Detected Ur Amphetamines Screen Not Detected U Benzodiazepines Scrn Not Detected Urine Cocaine Screen POSITIVE H U Marijuana (THC) Screen Not Detected COVID-19 ([facility]) Negative COVID-19 Clin Com See Note 12/02/20 12/02/20 12/03/20 10:50 10:50 08:12 WBC 6.8 RBC 5.18 Hgb 15.7 Hct 44.8 MCV 86.5 MCH 30.3 MCHC 35.0 RDW 12.8 Plt Count 161 MPV 10.3 Immature Gran % (Auto) 0.3 Neut % (Auto) 60.8 Lymph % (Auto) 26.6 [place] % (Auto) 8.5 Eos % (Auto) 3.5 Baso % (Auto) 0.3 Lymph # (Auto) 1.8 [place] # (Auto) 0.6 Eos # (Auto) 0.2 Baso # (Auto) 0.0 Abs Immat Gran (auto) 0.02 Absolute Neuts (auto) 4.1 Absolute Nucleated RBC 0.000 Nucleated RBC % (auto) 0.0 Sodium 135 Potassium 4.0 Chloride 100 Carbon Dioxide 28 Anion Gap 11 L BUN 20 H Creatinine 0.97 Estim Creat Clear Calc 127.6 Estimated GFR > 60 Random Glucose 292 H Estimat Average Glucose 272 Hemoglobin A1c % 11.1 Calcium 9.3 Total Bilirubin 1.0 AST 23 ALT 23 Alkaline Phosphatase 79 Total Protein 6.8 Albumin 4.1 Triglycerides Cholesterol LDL Cholesterol, Calc HDL Cholesterol Vitamin B12 Folate TSH Free T4 Urine Color Urine Appearance Urine pH Ur Specific [place] Urine Protein Urine Glucose (UA) Urine Ketones Urine Blood Urine Nitrite Ur Leukocyte Esterase Urine RBC Urine WBC Ur Squamous Epith Cells Urine Bacteria Granular Casts Urine Mucus Urine Opiates Screen Urine Fentanyl Screen Ur Barbiturates Screen Ur Phencyclidine Scrn Ur Amphetamines Screen U Benzodiazepines Scrn Urine Cocaine Screen U Marijuana (THC) Screen COVID-19 ([facility]) COVID-19 Clin Com 12/03/20 12/03/20 08:12 08:12 WBC RBC Hgb Hct MCV MCH MCHC RDW Plt Count MPV Immature Gran % (Auto) Neut % (Auto) Lymph % (Auto) [place] % (Auto) Eos % (Auto) Baso % (Auto) Lymph # (Auto) [place] # (Auto) Eos # (Auto) Baso # (Auto) Abs Immat Gran (auto) Absolute Neuts (auto) Absolute Nucleated RBC Nucleated RBC % (auto) Sodium Potassium Chloride Carbon Dioxide Anion Gap BUN Creatinine Estim Creat Clear Calc Estimated GFR Random Glucose Estimat Average Glucose Hemoglobin A1c % Calcium Total Bilirubin AST ALT Alkaline Phosphatase Total Protein Albumin Triglycerides 288 Cholesterol 233 LDL Cholesterol, Calc 147 HDL Cholesterol 29 Vitamin B12 333 Folate 13.1 TSH 0.49 Free T4 0.85 Urine Color Urine Appearance Urine pH Ur Specific [place] Urine Protein Urine Glucose (UA) Urine Ketones Urine Blood Urine Nitrite Ur Leukocyte Esterase Urine RBC Urine WBC Ur Squamous Epith Cells Urine Bacteria Granular Casts Urine Mucus Urine Opiates Screen Urine Fentanyl Screen Ur Barbiturates Screen Ur Phencyclidine Scrn Ur Amphetamines Screen U Benzodiazepines Scrn Urine Cocaine Screen U Marijuana (THC) Screen COVID-19 ([facility]) COVID-19 Clin Com Meds/Allergies Allergies Allergies Allergy/AdvReac Type Severity Reaction Status Date / Time Penicillins [PENICILLINS] Allergy Mild HIVES Unverified 10/30/19 14:50
--- NOTE | 2020-12-03 16:58 | PC.NURSE ---
Patient aware and was ready for discharge. Paperwork reviewed with patient and follow up appointment explained to patient. Patient verbalized understanding. Patient denies SI/HI, good mood .Paperwork faxed to PCP per policy. Patient left the unit with belongings, accompanied with the nurse per policy
--- NOTE | 2020-12-03 18:17 | HO.PSYCHPN ---
Subjective Subjective Date of Service: 12/03/20 Reason For Visit: bipolar disorder stimulant use disorder cocaine Subjective Notes: Conditional Voluntary and 3 Day Healthcare Proxy: No Guardianship: No Medical Problems Affecting Mental Status: No Interim History: Pt begins our meeting by stating he wants immediate discharge as this is not what I need. All of you people are zombies. I am fine I will NOT participate here . I am not suicidal and you cannot keep me. . My girlfriend and I have made up and I am leaving. Discussed precipitants to his admission. Reports a 20 year history of addictive illness and having trouble dealing with current life circumstances. States he cannot work due to shoulder injury and is not interested in retraining (no interest in [facility]). States he thought asking for help would yield something different. Denies medical issues, reports he has just enrolled in [facility] and thought admission would be more comfortable. Asks that we attempt to work on discharge. Allowed permission to call OP team-messages left without call back. Allowed medical social consultant to contact girlfriend who reports he can live in his home with her and she agrees to transport him. Pt declines other referrals to services-states he prefers to remain at [facility] near to his home. We discussed several telehealth opportunities which he declined. Medication Compliance: Intermittent Side effects from medications: No Attending Groups: No Review of Systems Acute medical concerns: No Medical Review of Systems: unchanged Review of Systems Psychiatric: Reports no additional psychiatric complaints, Reports homicidal ideation (denies) and Reports suicidal ideation (denies) Mental Status Exam Mental Status Exam Patient Appearance: Appropriate Patient Orientation: Person, Place, Time and Situation Level of Consciousness: Awake and Alert Patient Behavior: Appropriate, Talkative and Good Eye Contact Mood Description: Appropriate Affect Description: Appropriate Patient Cognition Impaired: No Ability to Follow Directions: Good Speech Pattern: Spontaneous Speech Memory Description: Intact Hallucinations: None Delusions: Not Present Thought Process: Intact Thought Content: positive for Intact, positive for Suicidal Ideation (denies) and positive for Homicidal Ideation (denies) Judgement: Good Diagnostics Vital Signs (24Hr): Vital Signs - 24 hr 12/03/20 06:00 12/03/20 08:34 Temperature 97.9 F Pulse Rate 70 65 Respiratory Rate 18 Blood Pressure 122/73 108/73 Pulse Oximetry 99 Body Mass Index 30.8 Labs Results: 12/02/20 10:50 12/02/20 10:50 Labs: Laboratory Results - last 48 hr 12/01/20 12/01/20 12/01/20 20:48 20:59 20:59 WBC RBC Hgb Hct MCV MCH MCHC RDW Plt Count MPV Immature Gran % (Auto) Neut % (Auto) Lymph % (Auto) [place] % (Auto) Eos % (Auto) Baso % (Auto) Lymph # (Auto) [place] # (Auto) Eos # (Auto) Baso # (Auto) Abs Immat Gran (auto) Absolute Neuts (auto) Absolute Nucleated RBC Nucleated RBC % (auto) Sodium Potassium Chloride Carbon Dioxide Anion Gap BUN Creatinine Estim Creat Clear Calc Estimated GFR Random Glucose Estimat Average Glucose Hemoglobin A1c % Calcium Total Bilirubin AST ALT Alkaline Phosphatase Total Protein Albumin Triglycerides Cholesterol LDL Cholesterol, Calc HDL Cholesterol Vitamin B12 Folate TSH Free T4 Urine Color DK YELLOW Urine Appearance HAZY Urine pH 5.5 Ur Specific [place] >= 1.030 H Urine Protein 1+ H Urine Glucose (UA) 500 H Urine Ketones NEG Urine Blood NEG Urine Nitrite NEG Ur Leukocyte Esterase NEG Urine RBC 0-2 Urine WBC 0 Ur Squamous Epith Cells TRACE Urine Bacteria TRACE Granular Casts 0-2 Urine Mucus 4+ Urine Opiates Screen Not Detected Urine Fentanyl Screen Not Detected Ur Barbiturates Screen Not Detected Ur Phencyclidine Scrn Not Detected Ur Amphetamines Screen Not Detected U Benzodiazepines Scrn Not Detected Urine Cocaine Screen POSITIVE H U Marijuana (THC) Screen Not Detected COVID-19 ([facility]) Negative COVID-19 Clin Com See Note 12/02/20 12/02/20 12/03/20 10:50 10:50 08:12 WBC 6.8 RBC 5.18 Hgb 15.7 Hct 44.8 MCV 86.5 MCH 30.3 MCHC 35.0 RDW 12.8 Plt Count 161 MPV 10.3 Immature Gran % (Auto) 0.3 Neut % (Auto) 60.8 Lymph % (Auto) 26.6 [place] % (Auto) 8.5 Eos % (Auto) 3.5 Baso % (Auto) 0.3 Lymph # (Auto) 1.8 [place] # (Auto) 0.6 Eos # (Auto) 0.2 Baso # (Auto) 0.0 Abs Immat Gran (auto) 0.02 Absolute Neuts (auto) 4.1 Absolute Nucleated RBC 0.000 Nucleated RBC % (auto) 0.0 Sodium 135 Potassium 4.0 Chloride 100 Carbon Dioxide 28 Anion Gap 11 L BUN 20 H Creatinine 0.97 Estim Creat Clear Calc 127.6 Estimated GFR > 60 Random Glucose 292 H Estimat Average Glucose 272 Hemoglobin A1c % 11.1 Calcium 9.3 Total Bilirubin 1.0 AST 23 ALT 23 Alkaline Phosphatase 79 Total Protein 6.8 Albumin 4.1 Triglycerides Cholesterol LDL Cholesterol, Calc HDL Cholesterol Vitamin B12 Folate TSH Free T4 Urine Color Urine Appearance Urine pH Ur Specific [place] Urine Protein Urine Glucose (UA) Urine Ketones Urine Blood Urine Nitrite Ur Leukocyte Esterase Urine RBC Urine WBC Ur Squamous Epith Cells Urine Bacteria Granular Casts Urine Mucus Urine Opiates Screen Urine Fentanyl Screen Ur Barbiturates Screen Ur Phencyclidine Scrn Ur Amphetamines Screen U Benzodiazepines Scrn Urine Cocaine Screen U Marijuana (THC) Screen COVID-19 ([facility]) COVID-19 [employer] 12/03/20 12/03/20 08:12 08:12 WBC RBC Hgb Hct MCV MCH MCHC RDW Plt Count MPV Immature Gran % (Auto) Neut % (Auto) Lymph % (Auto) [place] % (Auto) Eos % (Auto) Baso % (Auto) Lymph # (Auto) [place] # (Auto) Eos # (Auto) Baso # (Auto) Abs Immat Gran (auto) Absolute Neuts (auto) Absolute Nucleated RBC Nucleated RBC % (auto) Sodium Potassium Chloride Carbon Dioxide Anion Gap BUN Creatinine Estim Creat Clear Calc Estimated GFR Random Glucose Estimat Average Glucose Hemoglobin A1c % Calcium Total Bilirubin AST ALT Alkaline Phosphatase Total Protein Albumin Triglycerides 288 Cholesterol 233 LDL Cholesterol, Calc 147 HDL Cholesterol 29 Vitamin B12 333 Folate 13.1 TSH 0.49 Free T4 0.85 Urine Color Urine Appearance Urine pH Ur Specific [place] Urine Protein Urine Glucose (UA) Urine Ketones Urine Blood Urine Nitrite Ur Leukocyte Esterase Urine RBC Urine WBC Ur Squamous Epith Cells Urine Bacteria Granular Casts Urine Mucus Urine Opiates Screen Urine Fentanyl Screen Ur Barbiturates Screen Ur Phencyclidine Scrn Ur Amphetamines Screen U Benzodiazepines Scrn Urine Cocaine Screen U Marijuana (THC) Screen COVID-19 ([facility]) COVID-19 Clin Com Medications Allergies Allergies Allergy/AdvReac Type Severity Reaction Status Date / Time Penicillins [PENICILLINS] Allergy Mild HIVES Unverified 10/30/19 14:50 Assessment & Plan Assessment & Plan (1) MDD (major depressive disorder), recurrent episode, moderate: Status: Acute Code(s): F33.1 - Major depressive disorder, recurrent, moderate (2) Cocaine use disorder: Status: Acute Code(s): F14.10 - Cocaine abuse, uncomplicated (3) MARY (generalized anxiety disorder): Status: Acute Code(s): F41.1 - Generalized anxiety disorder Assessment and Plan: Mane is a 45 y.o. Male with a hx of MDD recurrent episode, MARY, and crack cocaine use disorder. He is presenting with sx of depression including hopeleness, anhedonia, irritability, low energy, and SI. Reports struggling with daily anxiety and recent panic attacks. Recent med changes include addition of buspar at 5 mg BID. Does not want to trial new medication but he is open to increasing buspar to therapeutic dose. Will increase to 15 mg BID, as buspar has significantly increased efficacy for anxiety and as adjunct tx for depression at higher doses and 15 mg BID is a starting dose. Will add melatonin 6 mg QHS PRN for difficult falling asleep, as pt does not want sedative hypnotic medication, says he is sensitive to any meds that cause sedation. Buspar is less likely to cause sedation at doses below 20 mg. Reviewed risks and benefits. No hx of manic or hypomanic episodes endorsed. Plan: Consider consult with recovery team Monitor response to medications. Monitor for safety in the milieu. Discharge on stabilization. Patient seen. Chart reviewed. Discussed with team. Obtain collateral contact info?as needed 12/03/20: Pt filed TDN and asks that we work on discharge today. He denies SI, HI or any intent of self harm. Team has discussed this with pt's partner with whom he lives and she is comfortable having him come home, has no concerns and will provide transportation. Plan: Discharge I spent ___95___ minutes with the patient and/or on the patient floor today, greater than?50% of which was spent counseling/coordinating care. Patient educated on: diagnosis, medication risk/benefits, substance abuse and therapeutic strategies Informed Consent: understands Reason for contiued inpatient stay Substantial Risk for: stable for discharge
== END 2020-12-03 16:50 | disposition home or self-care (01) | DRG 751 ==
LOC: HO.ED 21:15 → HO.PM5 12-02 14:06
PROVIDERS: Physician Assistant; Admitting Provider Clinical Nurse Specialist Psychiatric/Mental Health, Adult; Emergency Provider Internal Medicine; Visit Provider Clinical Nurse Specialist Psychiatric/Mental Health, Adult
DX: F33.1 Major depressive disorder, recurrent, moderate (principal); R45.851 Suicidal ideations; F17.210 Nicotine dependence, cigarettes, uncomplicated; F41.1 Generalized anxiety disorder; Z20.822 Contact with and (suspected) exposure to COVID-19; Z71.6 Tobacco abuse counseling; F14.10 Cocaine abuse, uncomplicated; Z23 Encounter for immunization; Z88.0 Allergy status to penicillin; Z79.1 Long term (current) use of non-steroidal anti-inflammatories (NSAID); Z79.899 Other long term (current) drug therapy
CPT/HCPCS: 36415; 80053; 80061; 80307; 81001; 82607; 82746; 83036; 84439; 84443; 85025; 87635; 90686; 93005; 99285

== ENCOUNTER 2024-11-01 20:41 | Emergency (ER) | payer OTHER, SELFPAY ==
[2024-11-01 20:47] VITALS: BP 130/90; PULSE 130; O2SAT 95; BMI 27.2
[2024-11-01 20:52] VITALS: BP 121/83; PULSE 118; RESP 17; TEMP 36.8; O2SAT 99
--- NOTE | 2024-11-01 21:07 | ED.GENADULT ---
HPI - General Adult General Chief complaint: General Medical Stated complaint: Neuropathy boot feet Time Seen by Provider: 11/01/24 21:03 History of Present Illness ED Provider: TIESHA WARD narrative: 49-year-old male came in for abnormal erratic behavior in public. Documented history of cocaine use disorder, anxiety depression. Related Data Home Medications ?Medication ?Instructions ?Recorded ?Confirmed buspirone 5 mg tablet 1 tab PO BID 12/01/20 12/01/20 celecoxib 100 mg capsule 1 cap PO BID 12/01/20 12/01/20 dextroamphetamine-amphetamine ER 1 cap PO BEDTIME 12/01/20 12/01/20 25 mg 24hr capsule,extend release (Adderall XR) paroxetine HCl 30 mg tablet 60 mg PO DAILY 12/01/20 12/01/20 propranolol 60 mg capsule,24 1 cap PO DAILY 12/01/20 12/01/20 hr,extended release Previous Rx's ?Medication ?Instructions ?Recorded capsaicin 0.1 % topical cream 1 appl topical BID #42.5 grams 11/01/24 capsaicin 0.1 % topical cream 1 appl topical BID #42.5 grams 11/01/24 pregabalin 100 mg capsule 100 mg PO TID #20 caps 11/01/24 Allergies Allergy/AdvReac Type Severity Reaction Status Date / Time Penicillins (PENICILLINS) Allergy Mild HIVES Verified 11/01/24 20:50 PMFSH Past Medical History Medical History Depression Social History Social History Household Members: Other Household Members Other:: girlfriend Housing: Other Housing Other:: duplex Do you presently have visiting nurse or other home services: No Patient Tobacco Use Status: Current everyday Tobacco user Tobacco use type: Cigarette Cigarette Packs Per Day: 1 Cigarettes Per Day: 20.0 Years Smoked: 30 Smoked in Last 30 Days: No Second Hand Smoke Exposure: No Substance Use Type: Crack/Cocaine Substance Use Frequency: Occasionally Last Used Substance: Days (ago) Advance Directives: No Advance Directives Information Provided: No Do you have a plan to hurt others: No Plan service: No Sexual orientation: Straight/Heterosexual Physical Exam ED Exam Exam: EXAM: Gen: Alert, awake, well appearing, well hydrated. Head: Atraumatic Eyes: Anicteric, Normal conjunctiva. ENT: Moist mucosa, no pallor. ? Neck: Supple. Skin: ?No observable rash or bruising on exposed or examined skin Respiratory: Breathing comfortably, No distress.Clear to auscultation bilaterally, symmetric chest expansion, No wheeze, rales, ronchi. Cardiovascular: Regular rate and rhythm. No murmurs or rub. Well perfused periphery, warm extremities. No edema. ? Abdominal: No focal tenderness. Soft, no objective distension. No palpable masses or obvious organomegaly. ?No guarding, no rebound tenderness or other peritoneal findings. : No flank tenderness. Neuro: Alert. Gross movement of all extremities intact. ? Psych: Calm. Cooperative. MSK: No grossly visible deformity. Vital signs: See flowsheet Vital Signs: Vital Signs - 24 hr 11/01/24 20:52 Temperature 98.2 F Pulse Rate 118 H Respiratory Rate 17 Blood Pressure 121/83 Pulse Oximetry 99 Oxygen Delivery Method Room Air BMI result Body Mass Index 27.2 Medications Administered Discontinued Medications Generic Name Dose Route Start Last Admin Trade Name Freq PRN Reason Stop Dose Admin Acetaminophen 975 mg 11/01/24 21:19 11/01/24 22:10 Acetaminophen 325 Mg Tablet PO 11/01/24 21:20 Not Given ONCE ONE Medical Decision Making Medical Decision Making MDM Narrative: Medical Decision Makin-year-old male who was yelling in public but he explains to me this was due to a severe level of neuropathy pain he has experienced this in the past. He has been previously prescribed gabapentin but this is not helping him. He declines to show me his feet and is requesting to be discharge. Denies SI or HI does not appear acutely psychotic and he has capacity to make this decision. I offered alternative neuropathy medications which he was agreeable to try. Preliminary Favored Differential Diagnosis: Neuropathy, vitamin deficiency, diabetes poorly controlled among additional considered etiologies Testing Interpreted Independently: ?See below for details Radiology or Lab testing Results Reviewed: ?See below for details Consults: ?See below for details Independent Historians/External Chart Reviews: ?See below for details Social Determinants of Health Impacting MDM/Planning: ?See below for details Discharge Plan Discharge Clinical Impression: Neuropathy Patient Disposition: Home, Self-Care Instructions: Peripheral Neuropathy (ED) Additional Instructions: DISCHARGE DIAGNOSES: Fluctuating pain from neuropathy HISTORY OF PRESENTATION: Severe pain that has reduced without treatment EMERGENCY DEPARTMENT COURSE,TESTS, TREATMENTS: While in the ED today to be you had slight tachycardia heart rate was fast 112th 03/15/2017. We offered intravenous hydration and additional workup and evaluation for possible dehydration electrolyte derangements but you declined this. We hydrated you orally and discussed and provided alternative therapies for your neuropathy DISCHARGE MEDICATIONS: ?[We have made no changes to your regular medication regimen] instead of the gabapentin you may wish to try the pregabalin a different but similar medication we have prescribed this for your. Additionally may want to talk with your primary doctor about other potentially more effective treatments such as amitriptyline or nortriptyline with your doctor. We have also prescribed topical capsaicin cream which can sometimes cause slight burning but often improves the pain FOLLOW-UP: ?Call your primary or general physician soon as possible to discuss your symptoms, your ED visit and to discuss follow up plans Call your primary doctor for follow up INSTRUCTIONS ?& RETURN PRECAUTIONS: If any symptoms change first call your primary physician, if it is after-hours your primary doctors office should have a provider ecdis n navigation operator you can speak with. If the symptoms are severe or very concerning to you then call 911 or return to the ED. Karthik De La Garza MD Emergency Physician [facility] Prescriptions: New capsaicin 0.1 % cream 1 appl topical BID Qty: 42.5 0RF Rx Instructions: do not wash area for at least 30 min after application pregabalin 100 mg capsule 100 mg PO TID Qty: 20 0RF capsaicin 0.1 % cream 1 appl topical BID Qty: 42.5 0RF Rx Instructions: do not wash area for at least 30 min after application No Action buspirone 5 mg tablet 1 tab PO BID propranolol 60 mg capsule,extended release 24 hr 1 cap PO DAILY paroxetine HCl 30 mg tablet 60 mg PO DAILY celecoxib 100 mg capsule 1 cap PO BID dextroamphetamine-amphetamine [Adderall XR] 25 mg capsule,extended release 24hr 1 cap PO BEDTIME Interventions: ED Discharge Assessment Last Done: 11/01/24 22:10 Discharge Date/Time: 11/01/24 22:12 Print Language: Albanian
[2024-11-01 22:10] VITALS: BP 121/83; PULSE 100; RESP 18; TEMP 36.8; O2SAT 99
== END 2024-11-01 22:12 | disposition home or self-care (01) ==
PROVIDERS: Emergency Provider Emergency Medicine
DX: G62.9 Polyneuropathy, unspecified (principal)
CPT/HCPCS: 99283; 99284